=== PATIENT | female | born 2000 | race Two or more races ===

== ENCOUNTER 2021-10-03 06:21 | Day surgery (SDC) | payer OTHER ==
[~2021-10-03 06:21] MED LIST: SPIRONO PO
[2021-10-03] MEDS ORDERED: DUI500 PO (10:27)
[2021-10-03] MEDS ORDERED: ULTRACET PO (10:27)
== END 2021-10-03 12:25 | disposition home or self-care (01) ==
LOC: CIR.AMB 06:21
PROVIDERS: ATTEND Orthopaedic Surgery Sports Medicine
DX: M20.12 Hallux valgus (acquired), left foot (principal); J45.909 Unspecified asthma, uncomplicated; Z20.822 Contact with and (suspected) exposure to COVID-19
CPT/HCPCS: 28298; L8699

== ENCOUNTER 2022-09-28 08:40 | Day surgery (SDC) | payer OTHER ==
[~2022-09-28] VITALS: Ht 162.6 cm; Wt 68.0 kg
[~2022-09-28 08:40] MED LIST changes: +DUI500 PO; +TRISPRINTEC; +ULTRACET PO
[2022-09-28] MEDS ORDERED: TRAM1TAB98 PO (15:37)
[2022-09-28] MEDS ORDERED: CEFADROXIL500 MG PO (15:37)
== END 2022-09-28 18:05 | disposition home or self-care (01) ==
LOC: CIR.AMB 08:40
PROVIDERS: ATTEND Orthopaedic Surgery Sports Medicine
DX: M20.11 Hallux valgus (acquired), right foot (principal); Z20.822 Contact with and (suspected) exposure to COVID-19; D68.9 Coagulation defect, unspecified
CPT/HCPCS: 28298; L8699